=== PATIENT | male | born 1955 | race Caucasian/White ===

== ENCOUNTER 2016-09-20 21:12 | Inpatient (IN) | payer SELFPAY ==
--- NOTE | 2016-09-20 22:09 | ED Physician Chart ---
Chief Complaint/HPI - Patient Information Date Seen:: 09/20/16 Time Seen:: 21:30 Chief Complaint:: CHEST PAIN History of Present Illness:: THIS IS A 61 YO MALE DIABETIC, HYPERTENSIVE, ELEVATED CHOLESTROL WITH NAUSEA AND VOMITING SINCE 1000 HRS TODAY. HE STATES THAT HE FELT BETTER AFTER GETTING UP SOME OF THE EGGS AND SAUSAGE THAT HE ATE IN THE MORNING. HE DENIES A PREVIOUS HEART ATTACK AND DENIES TAKING ANY MEDS FOR HIS HEART. THE PATIENT DENIES ANY HISTORY OF GI PROBLEMS. HE DENIES HAVING ANY HEART OR CHEST PAIN OR SOB. HE DENIES A RECENT FEVER OF COUGH. Allergies:: Allergies Allergy/AdvReac Type Severity Reaction Status Date / Time No Known Allergies Allergy Verified 09/20/16 21:43 Vitals:: Vital Signs - 8 hr 09/20/16 21:25 Temp 97.9 F HR 99 RR 18 BP 230/114 O2 Sat % 95 Historian:: Patient Review:: Nurse's Note Reviewed Review of Systems - Review of Systems General/Constitutional: No fever, No chills, No weight loss, No weakness, No diaphoresis, No edema, No loss of appetite Skin: No skin lesions, No rash, No bruising Head: No headache, No light-headedness Eyes: No loss of vision, No pain, No diplopia ENT: No earache, No nasal drainage, No sore throat, No tinnitus Neck: No neck pain, No swelling, No thyromegaly, No stiffness, No mass noted Cardio Vascular: Chest pain, No palpitations, No PND, No orthopnea, No edema Pulmonary: No SOB, No cough, No sputum, No wheezing GI: Nausea, Vomiting, No diarrhea, No pain, No melena, No hematochezia, No constipation, No hematemesis G/U: No dysuria, No frequency, No hematuria Musculoskeletal: No bone or joint pain, No back pain, No muscle pain Endocrine: No polyuria, No polydipsia Psychiatric: No prior psych history, No depression, No anxiety, No suicidal ideation Hematopoietic: No bruising, No lymphadenopathy Allergic/Immuno: No urticaria, No angioedema Neurological: No syncope, No focal symptoms, No weakness, No paresthesia, No headache, No seizure, No dizziness, No confusion, No vertigo Past Medical History - Past Medical History Obtainable: Yes Past Medical History: HTN, DM, Dyslipidemia Family History: None Social History: Non Smoker, No Alcohol, No Drug Use, , Employed Surgical History: None Psychiatricy History: None Medication: Reviewed Family Medical History - Family Member Mother History Unknown: Yes Physical Exam - Physical Examination General/Constitutional: Awake, Well-developed, well-nourished, Alert, No distress, GCS 15, Non-toxic appearing, Ambulatory Other Gen/Cons comments:: OBESE Head: Atraumatic Eyes: Lids, conjuctiva normal, PERRL, EOMI Skin: Nl inspection, No rash, No skin lesions, No ecchymosis, Well hydrated, No lymphadenopathy ENMT: External ears, nose nl, Nasal exam nl, Lips, teeth, gums nl Neck: Nontender, Full ROM w/o pain, No JVD, No nuchal rigidity, No bruit, No mass, No stridor Respiratory: Nl effort/Exclusion, Clear to Auscultation, No Wheeze/Rhonchi/Rales Cardio Vascular: RRR, No murmur, gallop, rubs, NL S1 S2 GI: No tenderness/rebounding/guarding, No organomegaly, No hernia, Normal BS's, Nondistended, No mass/bruits, No McBurney tenderness : No CVA tenderness Extremities: No tenderness or effusion, Full ROM, normal strength in all extremities, No edema, Normal digits & nails Neuro/Psych: Alert/oriented, DTR's symmetric, Normal sensory exam, Normal motor strength, Judgement/insight normal, Mood normal, Normal gait, No focal deficits Misc: normal gait, Normal back, No paraspinal tenderness Labs/Radiology/EKG Results - Lab Results Results: Abnormal Lab Results 09/20/16 09/20/16 09/20/16 22:16 22:16 22:16 WBC 9.9 RBC 5.13 Hgb 16.2 Hct 47.6 MCV 92.7 MCH 31.6 H MCHC Differential 34.1 RDW 13.2 Plt Count 150 MPV 8.3 Band Neutrophils % 3 Neutrophils (Manual) 86 H Lymphocytes 7 L Monocytes 3 Eosinophils 1 Platelet Estimate ADEQUATE PT 11.2 INR 1.08 PTT (Actin FS) 26.7 Sodium Potassium Chloride Carbon Dioxide Anion Gap BUN Creatinine Est GFR ( Amer) Est GFR (Non-Af Amer) BUN/Creatinine Ratio Glucose Calcium Total Bilirubin AST ALT Alkaline Phosphatase Troponin I Total Protein Albumin Globulin Albumin/Globulin Ratio Triglycerides 81 Cholesterol 167 LDL Cholesterol Direct 95 HDL Cholesterol 53 TSH 09/20/16 09/20/16 09/20/16 22:16 22:16 22:16 WBC RBC Hgb Hct MCV MCH MCHC Differential RDW Plt Count MPV Band Neutrophils % Neutrophils (Manual) Lymphocytes Monocytes Eosinophils Platelet Estimate PT INR PTT (Actin FS) Sodium 131 L Potassium 4.6 Chloride 100 Carbon Dioxide 21.5 Anion Gap 14.1 BUN 14 Creatinine 1.0 Est GFR ( Amer) > 60.0 Est GFR (Non-Af Amer) > 60.0 BUN/Creatinine Ratio 14.0 Glucose 270 H Calcium 9.5 Total Bilirubin 0.9 AST 27 ALT 27 Alkaline Phosphatase 122 H Troponin I < 0.01 L Total Protein 8.1 Albumin 3.9 L Globulin 4.2 Albumin/Globulin Ratio 0.9 L Triglycerides Cholesterol LDL Cholesterol Direct HDL Cholesterol TSH 1.18 - Radiology Results Results: CT SCAN OF THE ABDOMEN = DISTENDED GALLBLADDER CHEST X-RAY = NAD - EKG Interpretations EKG Time:: 22:08 Rate & Rhythm: 94, SINUS [place]: LEFT Intervals: NO ECTOPY Assessment - Assessment General Assessment: PROTRACTED VOMITING DISTENDED GALLBLADDER ED Septic Shock - . Is Septic Shock (SBP<90, OR Lactate>4 mmol\L) present?: No - <6hrs of presentation: Vital Signs: Vital Signs - 8 hr 09/20/16 21:25 Temp 97.9 F HR 99 RR 18 BP 230/114 O2 Sat % 95 Reassessment (Disposition) - Reassessment Reassessment Condition:: Improved - Diagnosis Diagnosis:: PROTRACTED VOMITING DISTENDED GALLBLADDER HYPERTENSION UNCONTROLLED. - Patient Disposition Discharge/Transfer:: Acute Care w/in this hosp Admitting Medical Physician:: Keith Negrete Condition at Disposition:: Improved ED Discharge Plan - Patient Disposition Admit/Discharge/Transfer: Acute Care w/in this hosp Condition at Disposition: Improved
[2016-09-20 22:23] LABS: HEMATOCRIT 47.6 % (39.0-49.0); HEMOGLOBIN 16.2 gm/dL (13.2-17.3); MEAN CELL VOLUME 92.7 fl (80-99); MEAN CORPUSCULAR HEMOGLOBIN 31.6 pg (26.0-30.0); MEAN CORPUSCULAR HGB CONC 34.1 pg (28.0-36.0); MEAN PLATELET VOLUME 8.3 fl; NEUTROPHILE ABSOLUTE 8.9 Th/cmm (1.8-8.0); PLATELET COUNT 150 Th/cmm (150-400); RED BLOOD COUNT 5.13 Mil/cmm (4.30-5.70); RED CELL DISTRIBUTION WIDTH 13.2 % (11.5-20.0); WHITE BLOOD COUNT 9.9 Th/cmm (4.8-10.8)
[2016-09-20 22:40] LABS: BAND NEUTROPHILE 3 % (0-10); CHOLESTEROL 167 mg/dL (<200); EOSINOPHIL 1 % (0-5); NEUTROPHILS 86 % (40-80); PLATELET ESTIMATE ADEQUATE (NORMAL); TOTAL CELLS COUNTED 100; TRIGLYCERIDES 81 mg/dL (<150)
[2016-09-20 22:42] LABS: ALB/GLOB RATIO 0.9 (1.0-1.8); ALKALINE PHOSPHATASE 122 U/L (34-104); ANION GAP 14.1 (7.0-16.0); BILIRUBIN,TOTAL 0.9 mg/dL (0.3-1.0); BUN - UREA NITROGEN 14 mg/dL (7-25); CALCIUM SERUM 9.5 mg/dL (8.6-10.3); CARBON DIOXIDE 21.5 mEq/L (21.0-31.0); CHLORIDE 100 mEq/L (98-107); GLUCOSE 270 mg/dL (70-105); POTASSIUM SERUM 4.6 mEq/L (3.5-5.1); SGOT 27 U/L (13-39); SGPT/ALT 27 U/L (7-52); SODIUM SERUM 131 mEq/L (136-145)
[2016-09-20 22:44] LABS: INR 1.08 (0.5-1.4); PROTHROMBIN TIME (TEST) 11.2 SECONDS (9.5-11.5)
[2016-09-20] MEDS ORDERED: cloNIDine 0.2 mg/24 hr Tdm TD ONE (23:16)
[2016-09-21] MEDS ORDERED: Sodium Chloride 0.45% 1,000 ML IV ONE (01:42)
[2016-09-21 03:04] LABS: URINE COLOR YELLOW
[2016-09-21 03:05] LABS: URINE BILIRUBIN NEGATIVE (NEGATIVE); URINE BLOOD TRACE (NEGATIVE); URINE GLUCOSE (UA) 500 mg/dL (NEGATIVE); URINE KETONE 40 mg/dL (NEGATIVE); URINE PH 5.5; URINE PROTEIN >300 mg/dL (NEGATIVE); URINE RBC 0-2 /hpf (0-5); URINE WBC 0-2 /hpf (0-5)
[2016-09-21] MEDS: Sodium Chloride 0.9% 1,000 ML IV SCH ×2 (03:05→17:10)
[2016-09-21 03:06] LABS: URINE BACTERIA OCCASIONAL /hpf (NONE SEEN); URINE EPITHELIAL CELLS OCCASIONAL /lpf (FEW)
[2016-09-21 03:45] VITALS: BP 173/88
[2016-09-21 06:08] LABS: HEMATOCRIT 46.5 % (39.0-49.0); HEMOGLOBIN 15.9 gm/dL (13.2-17.3); MEAN CELL VOLUME 92.1 fl (80-99); MEAN CORPUSCULAR HEMOGLOBIN 31.4 pg (26.0-30.0); MEAN CORPUSCULAR HGB CONC 34.1 pg (28.0-36.0); MEAN PLATELET VOLUME 8.9 fl; PLATELET COUNT 142 Th/cmm (150-400); RED BLOOD COUNT 5.05 Mil/cmm (4.30-5.70); RED CELL DISTRIBUTION WIDTH 13.2 % (11.5-20.0)
[2016-09-21 06:15] LABS: WHITE BLOOD COUNT 13.5 Th/cmm (4.8-10.8)
[2016-09-21 06:27] LABS: ALKALINE PHOSPHATASE 113 U/L (34-104); ANION GAP 13.3 (7.0-16.0); BILIRUBIN,TOTAL 0.6 mg/dL (0.3-1.0); BUN - UREA NITROGEN 15 mg/dL (7-25); CALCIUM SERUM 9.2 mg/dL (8.6-10.3); CARBON DIOXIDE 20.9 mEq/L (21.0-31.0); CHLORIDE 99 mEq/L (98-107); GLUCOSE 261 mg/dL (70-105); POTASSIUM SERUM 4.2 mEq/L (3.5-5.1); SGOT 24 U/L (13-39); SGPT/ALT 24 U/L (7-52); SODIUM SERUM 129 mEq/L (136-145)
[2016-09-21 06:58] LABS: EOSINOPHIL 2 % (0-5); NEUTROPHILS 89 % (40-80); PLATELET ESTIMATE ADEQUATE (NORMAL); PLATELET MORPHOLOGY NORMAL (NORMAL); TOTAL CELLS COUNTED 100
[2016-09-21] MEDS ORDERED: VTE Chemical Prophylaxis Screen/Admission MC PRN (09:13)
--- NOTE | 2016-09-21 09:20 | Diagnostic Imaging Report ---
CT scan abdomen and pelvis without intravenous contrast HISTORY: Pain Total DLP equals 787 CTDI equals 15.5 Axial sections were obtained from the xiphoid process down to the pubic symphysis. Exam of the liver demonstrates a bulbous contour of the left lobe. No focal lesions. The spleen appears normal. The pancreas appears somewhat atrophic. Serpiginous densities seen in the splenic hilar region that may be associated with varices. There is a markedly distended gallbladder. No definite calculi. If indicated, sonography would provide additional assessment. No focal renal lesions. No hydronephrosis. The exam of the pelvis demonstrates preservation of normal fat planes. No abnormal soft tissue masses or abnormal fluid collections. Severe diffuse degenerative changes seen throughout the spine. Atherosclerotic calcification noted throughout the abdominal aorta and superficial femoral artery regions. IMPRESSION: 1. No definite acute abnormalities 2. Bulbous contour involving the left lobe of the liver 3. Serpiginous densities in the splenic hilar region. Varices cannot be definitely excluded. 4. Atrophic pancreas 5. Severe diffuse degenerative changes throughout the spine 6. Atherosclerotic vascular changes 7. Distended gallbladder. If indicated, sonography would provide additional assessment.
--- NOTE | 2016-09-21 09:28 | Diagnostic Imaging Report ---
Portable chest x-ray HISTORY: Pain Exam is suboptimal with underpenetration associated with patient size. The heart is enlarged. No definite focal pulmonary processes. Degenerative changes seen to the spine. IMPRESSION: 1. Suboptimal exam associated with under penetration related to patient size. 2. Cardiomegaly 3. No obvious focal pulmonary processes
[2016-09-21] MEDS: Levofloxacin 500mg/100mL 500 MG/100 ML BAG IV SCH (10:10)
[2016-09-21] MEDS ORDERED: APAP/Codeine 300 mg/30 mg Tab PO PRN (11:38)
--- NOTE | 2016-09-21 11:52 | History and Physical ---
History of Present Illness - HPI Chief Complaint: Chest pain HPI: patient refer that he started with nausea and vomit, later started with chest pain and came to ER for Eval. During ER eval Abdominal CT was done and distended gallblader was found. Today WBC is high. Vital Signs: Last Vital Signs Temp 99.3 F 09/21/16 08:27 Pulse 101 09/21/16 08:27 Resp 20 09/21/16 08:27 BP 150/79 09/21/16 08:27 Pulse Ox 96 09/21/16 08:27 Past Medical History Cardiovascular: Report: HTN Pulmonary: Report: No Pertinent Hx HAT CONDITIONER: Report: No Pertinent Hx GI: Report: Other (Nausea, vomit and abdominal pain) Psych: Report: No Pertinent Hx Musculoskeletal: Report: No Pertinent Hx Rheumatologic: Report: No pertinent Hx Infectious Disease: Report: No Pertinent Hx Renal/: Report: No Pertinent Hx Endocrine: Report: Diabetes Dermatology: Report: No Pertinent Hx - Past Surgical History Past Surgical History: No pertinent Hx Family Medical History - Family Member Mother History Unknown: Yes Social History Smoke: No Alcohol: None Drugs: None Lives: Alone Domestic Violence: Negative Health Maintenance Health Maintenance: Cholesterol - Medications Home Medications: Home Medication Medication Instructions Recorded Type Gabapentin 100 mg PO HS 09/20/16 History Glipizide [Glipizide ER] 10 mg PO BID 09/20/16 History Lisinopril 20 mg PO DAILY 09/20/16 History Metformin HCl [Metformin HCl] 1,000 mg PO BID 09/20/16 History Simvastatin [Zocor] 40 mg PO QPM 09/20/16 History - Allergies Allergies/Adverse Reactions: Allergies Allergy/AdvReac Type Severity Reaction Status Date / Time No Known Allergies Allergy Verified 09/20/16 21:43 Review of Systems - Review of Systems Constitutional: Report: Weakness Eyes: Report: Other (WNL) Respiratory: Report: Cough Cardiovascular: Report: Chest Pain Gastrointestinal: Report: Nausea, Vomiting Genitourinary: Report: Other (no dysuria) Musculoskeletal: Report: Other (No pain) Skin: Report: Other (Warm and dry) Neurological: Report: Other (ambulatory) Physical Exam - Physical Exam HEENT: Report: Ears Nose Throat Within Normal Limits Neck: Report: WNL Cardiovascular Systems: Report: Regular, Rate and Rhythm Respiratory: Report: Clear to Auscultation of lung clark Abdomen: Report: Tender to palpation Back: Report: Inspection of back is within normal limits. Extremities: Report: Non-tender to palpation. Skin: Report: Color of skin is within normal limits Neuro/Psych: Report: CN II-XII intact, No motor deficit - Lab Results All Lab Results last 24 hours: Laboratory Last Values WBC 13.5 Th/cmm (4.8-10.8) H D 09/21/16 05:52 RBC 5.05 Mil/cmm (4.30-5.70) 09/21/16 05:52 Hgb 15.9 gm/dL (13.2-17.3) 09/21/16 05:52 Hct 46.5 % (39.0-49.0) 09/21/16 05:52 MCV 92.1 fl (80-99) 09/21/16 05:52 MCH 31.4 pg (26.0-30.0) H 09/21/16 05:52 MCHC Differential 34.1 pg (28.0-36.0) 09/21/16 05:52 RDW 13.2 % (11.5-20.0) 09/21/16 05:52 Plt Count 142 Th/cmm (150-400) L 09/21/16 05:52 MPV 8.9 fl 09/21/16 05:52 Band Neutrophils % 3 % (0-10) 09/20/16 22:16 Neutrophils (Manual) 89 % (40-80) H 09/21/16 05:52 Lymphocytes 3 % (20-50) L 09/21/16 05:52 Monocytes 6 % (2-10) 09/21/16 05:52 Eosinophils 2 % (0-5) 09/21/16 05:52 Platelet Estimate ADEQUATE (NORMAL) 09/21/16 05:52 Platelet Morphology NORMAL (NORMAL) 09/21/16 05:52 RBC Morph Micro Appear NORMAL (NORMAL) 09/21/16 05:52 PT 11.2 SECONDS (9.5-11.5) 09/20/16 22:16 INR 1.08 (0.5-1.4) 09/20/16 22:16 PTT (Actin FS) 26.7 SECONDS (26.0-38.0) 09/20/16 22:16 Sodium 129 mEq/L (136-145) L 09/21/16 05:52 Potassium 4.2 mEq/L (3.5-5.1) 09/21/16 05:52 Chloride 99 mEq/L (98-107) 09/21/16 05:52 Carbon Dioxide 20.9 mEq/L (21.0-31.0) L 09/21/16 05:52 Anion Gap 13.3 (7.0-16.0) 09/21/16 05:52 BUN 15 mg/dL (7-25) 09/21/16 05:52 Creatinine 1.0 mg/dL (0.7-1.3) 09/21/16 05:52 Est GFR ( Amer) > 60.0 ml/min (>90) 09/21/16 05:52 Est GFR (Non-Af Amer) > 60.0 ml/min 09/21/16 05:52 BUN/Creatinine Ratio 15.0 09/21/16 05:52 Glucose 261 mg/dL (70-105) H 09/21/16 05:52 Hemoglobin A1c % 7.9 % (4.0-6.0) H 09/20/16 22:16 Calcium 9.2 mg/dL (8.6-10.3) 09/21/16 05:52 Total Bilirubin 0.6 mg/dL (0.3-1.0) 09/21/16 05:52 AST 24 U/L (13-39) 09/21/16 05:52 ALT 24 U/L (7-52) 09/21/16 05:52 Alkaline Phosphatase 113 U/L (34-104) H 09/21/16 05:52 Troponin I < 0.01 ng/mL (0.01-0.05) L 09/21/16 01:57 Total Protein 7.6 gm/dL (6.0-8.3) 09/21/16 05:52 Albumin 3.7 gm/dL (4.2-5.5) L 09/21/16 05:52 Globulin 3.9 gm/dL 09/21/16 05:52 Albumin/Globulin Ratio 1.0 (1.0-1.8) 09/21/16 05:52 Triglycerides 81 mg/dL (<150) 09/20/16 22:16 Cholesterol 167 mg/dL (<200) 09/20/16 22:16 LDL Cholesterol Direct 95 mg/dL (75-193) 09/20/16 22:16 HDL Cholesterol 53 mg/dL (23-92) 09/20/16 22:16 TSH 1.18 uIU/ml (0.34-5.60) 09/20/16 22:16 Urine Source CLEAN C 09/21/16 02:50 Urine Color YELLOW 09/21/16 02:50 Urine Clarity CLEAR (CLEAR) 09/21/16 02:50 Urine pH 5.5 09/21/16 02:50 Ur Specific [place] 1.025 (1.005-1.030) 09/21/16 02:50 Urine Protein >300 mg/dL (NEGATIVE) H 09/21/16 02:50 Urine Glucose (UA) 500 mg/dL (NEGATIVE) H 09/21/16 02:50 Urine Ketones 40 mg/dL (NEGATIVE) H 09/21/16 02:50 Urine Blood TRACE (NEGATIVE) 09/21/16 02:50 Urine Nitrate NEGATIVE (NEGATIVE) 09/21/16 02:50 Urine Bilirubin NEGATIVE (NEGATIVE) 09/21/16 02:50 Urine Urobilinogen 1.0 E.U./dL (0.2 - 1.0) 09/21/16 02:50 Ur Leukocyte Esterase NEGATIVE (NEGATIVE) 09/21/16 02:50 Urine RBC 0-2 /hpf (0-5) H 09/21/16 02:50 Urine WBC 0-2 /hpf (0-5) 09/21/16 02:50 Ur Epithelial Cells OCCASIONAL /lpf (FEW) 09/21/16 02:50 Urine Bacteria OCCASIONAL /hpf (NONE SEEN) 09/21/16 02:50 Laboratory Results - last 24 hr 09/21/16 09/21/16 09/21/16 01:57 02:50 05:52 WBC 13.5 H D RBC 5.05 Hgb 15.9 Hct 46.5 MCV 92.1 MCH 31.4 H MCHC Differential 34.1 RDW 13.2 Plt Count 142 L MPV 8.9 Neutrophils (Manual) 89 H Lymphocytes 3 L Monocytes 6 Eosinophils 2 Platelet Estimate ADEQUATE Platelet Morphology NORMAL RBC Morph Micro Appear NORMAL Sodium Potassium Chloride Carbon Dioxide Anion Gap BUN Creatinine Est GFR ( Amer) Est GFR (Non-Af Amer) BUN/Creatinine Ratio Glucose Calcium Total Bilirubin AST ALT Alkaline Phosphatase Troponin I < 0.01 L Total Protein Albumin Globulin Albumin/Globulin Ratio Urine Source CLEAN C Urine Color YELLOW Urine Clarity CLEAR Urine pH 5.5 Ur Specific [place] 1.025 Urine Protein >300 H Urine Glucose (UA) 500 H Urine Ketones 40 H Urine Blood TRACE Urine Nitrate NEGATIVE Urine Bilirubin NEGATIVE Urine Urobilinogen 1.0 Ur Leukocyte Esterase NEGATIVE Urine RBC 0-2 H Urine WBC 0-2 Ur Epithelial Cells OCCASIONAL Urine Bacteria OCCASIONAL 09/21/16 05:52 WBC RBC Hgb Hct MCV MCH MCHC Differential RDW Plt Count MPV Neutrophils (Manual) Lymphocytes Monocytes Eosinophils Platelet Estimate Platelet Morphology RBC Morph Micro Appear Sodium 129 L Potassium 4.2 Chloride 99 Carbon Dioxide 20.9 L Anion Gap 13.3 BUN 15 Creatinine 1.0 Est GFR ( Amer) > 60.0 Est GFR (Non-Af Amer) > 60.0 BUN/Creatinine Ratio 15.0 Glucose 261 H Calcium 9.2 Total Bilirubin 0.6 AST 24 ALT 24 Alkaline Phosphatase 113 H Troponin I Total Protein 7.6 Albumin 3.7 L Globulin 3.9 Albumin/Globulin Ratio 1.0 Urine Source Urine Color Urine Clarity Urine pH Ur Specific [place] Urine Protein Urine Glucose (UA) Urine Ketones Urine Blood Urine Nitrate Urine Bilirubin Urine Urobilinogen Ur Leukocyte Esterase Urine RBC Urine WBC Ur Epithelial Cells Urine Bacteria - Assessment Assessment: Patient is awake, calm in no acute distress. At this moment he denied abdominal pain or nausea. - Plan Plan: Patient already seen by GI. AB are prescribed. Will continue to monitor
[2016-09-21] MEDS: metroNIDAZOLE 500mg/NS 100mL 500 MG/100 ML BAG IV SCH ×3 (12:35→20:24)
[2016-09-22] MEDS: metroNIDAZOLE 500mg/NS 100mL 500 MG/100 ML BAG IV SCH ×3 (04:31→22:09)
[2016-09-22] MEDS: Sodium Chloride 0.9% 1,000 ML IV SCH ×2 (04:36→16:03)
[2016-09-22 06:28] LABS: % BASOPHILS 0.3 % (0.0-2.0); % EOSINOPHILS 1.6 % (0.0-5.0); % LYMPHOCYTES 22.1 % (20.0-50.0); % MONOCYTES 8.9 % (2.0-10.0); % NEUTROPHILS 67.1 % (40.0-80.0); HEMATOCRIT 43.5 % (39.0-49.0); HEMOGLOBIN 14.7 gm/dL (13.2-17.3); MEAN CELL VOLUME 94.2 fl (80-99); MEAN CORPUSCULAR HEMOGLOBIN 31.9 pg (26.0-30.0); MEAN CORPUSCULAR HGB CONC 33.9 pg (28.0-36.0); MEAN PLATELET VOLUME 8.5 fl; NEUTROPHILE ABSOLUTE 5.5 Th/cmm (1.8-8.0); PLATELET COUNT 135 Th/cmm (150-400); RED BLOOD COUNT 4.62 Mil/cmm (4.30-5.70); RED CELL DISTRIBUTION WIDTH 13.6 % (11.5-20.0)
[2016-09-22 06:29] LABS: INR 1.09 (0.5-1.4); PROTHROMBIN TIME (TEST) 11.4 SECONDS (9.5-11.5)
[2016-09-22 06:31] LABS: WHITE BLOOD COUNT 8.1 Th/cmm (4.8-10.8)
[2016-09-22 06:36] LABS: ALB/GLOB RATIO 0.9 (1.0-1.8); ALKALINE PHOSPHATASE 94 U/L (34-104); AMYLASE SERUM 19 U/L (29-103); BILIRUBIN,TOTAL 0.7 mg/dL (0.3-1.0); BUN - UREA NITROGEN 14 mg/dL (7-25); CALCIUM SERUM 8.7 mg/dL (8.6-10.3); GLUCOSE 120 mg/dL (70-105); LIPASE 9 U/L (11-82); SGOT 25 U/L (13-39); SGPT/ALT 21 U/L (7-52)
[2016-09-22 07:29] LABS: ANION GAP 11.5 (7.0-16.0); CARBON DIOXIDE 22.4 mEq/L (21.0-31.0); CHLORIDE 106 mEq/L (98-107); POTASSIUM SERUM 3.9 mEq/L (3.5-5.1); SODIUM SERUM 136 mEq/L (136-145)
--- NOTE | 2016-09-22 09:02 | General Progress Note ---
Subjective - Review of Systems Service Date: 09/22/16 Subjective: I am fine Objective - Results Result Diagrams: 09/22/16 06:06 09/22/16 06:06 Recent Labs: Laboratory Last Values WBC 8.1 Th/cmm (4.8-10.8) D 09/22/16 06:06 RBC 4.62 Mil/cmm (4.30-5.70) 09/22/16 06:06 Hgb 14.7 gm/dL (13.2-17.3) 09/22/16 06:06 Hct 43.5 % (39.0-49.0) 09/22/16 06:06 MCV 94.2 fl (80-99) 09/22/16 06:06 MCH 31.9 pg (26.0-30.0) H 09/22/16 06:06 MCHC Differential 33.9 pg (28.0-36.0) 09/22/16 06:06 RDW 13.6 % (11.5-20.0) 09/22/16 06:06 Plt Count 135 Th/cmm (150-400) L 09/22/16 06:06 MPV 8.5 fl 09/22/16 06:06 Neutrophils % 67.1 % (40.0-80.0) 09/22/16 06:06 Band Neutrophils % 3 % (0-10) 09/20/16 22:16 Lymphocytes % 22.1 % (20.0-50.0) 09/22/16 06:06 Monocytes % 8.9 % (2.0-10.0) 09/22/16 06:06 Eosinophils % 1.6 % (0.0-5.0) 09/22/16 06:06 Basophils % 0.3 % (0.0-2.0) 09/22/16 06:06 Neutrophils (Manual) 89 % (40-80) H 09/21/16 05:52 Lymphocytes 3 % (20-50) L 09/21/16 05:52 Monocytes 6 % (2-10) 09/21/16 05:52 Eosinophils 2 % (0-5) 09/21/16 05:52 Platelet Estimate ADEQUATE (NORMAL) 09/21/16 05:52 Platelet Morphology NORMAL (NORMAL) 09/21/16 05:52 RBC Morph Micro Appear NORMAL (NORMAL) 09/21/16 05:52 PT 11.4 SECONDS (9.5-11.5) 09/22/16 06:06 INR 1.09 (0.5-1.4) 09/22/16 06:06 PTT (Actin FS) 27.1 SECONDS (26.0-38.0) 09/22/16 06:06 Sodium 136 mEq/L (136-145) 09/22/16 06:06 Potassium 3.9 mEq/L (3.5-5.1) 09/22/16 06:06 Chloride 106 mEq/L (98-107) 09/22/16 06:06 Carbon Dioxide 22.4 mEq/L (21.0-31.0) 09/22/16 06:06 Anion Gap 11.5 (7.0-16.0) 09/22/16 06:06 BUN 14 mg/dL (7-25) 09/22/16 06:06 Creatinine 1.0 mg/dL (0.7-1.3) 09/22/16 06:06 Est GFR ( Amer) > 60.0 ml/min (>90) 09/22/16 06:06 Est GFR (Non-Af Amer) > 60.0 ml/min 09/22/16 06:06 BUN/Creatinine Ratio 14.0 09/22/16 06:06 Glucose 120 mg/dL (70-105) H 09/22/16 06:06 Hemoglobin A1c % 7.9 % (4.0-6.0) H 09/20/16 22:16 Calcium 8.7 mg/dL (8.6-10.3) 09/22/16 06:06 Total Bilirubin 0.7 mg/dL (0.3-1.0) 09/22/16 06:06 AST 25 U/L (13-39) 09/22/16 06:06 ALT 21 U/L (7-52) 09/22/16 06:06 Alkaline Phosphatase 94 U/L (34-104) 09/22/16 06:06 Troponin I < 0.01 ng/mL (0.01-0.05) L 09/21/16 01:57 Total Protein 6.7 gm/dL (6.0-8.3) 09/22/16 06:06 Albumin 3.2 gm/dL (4.2-5.5) L 09/22/16 06:06 Globulin 3.5 gm/dL 09/22/16 06:06 Albumin/Globulin Ratio 0.9 (1.0-1.8) L 09/22/16 06:06 Triglycerides 81 mg/dL (<150) 09/20/16 22:16 Cholesterol 167 mg/dL (<200) 09/20/16 22:16 LDL Cholesterol Direct 95 mg/dL (75-193) 09/20/16 22:16 HDL Cholesterol 53 mg/dL (23-92) 09/20/16 22:16 Amylase 19 U/L (29-103) L 09/22/16 06:06 Lipase 9 U/L (11-82) L 09/22/16 06:06 TSH 1.18 uIU/ml (0.34-5.60) 09/20/16 22:16 Urine Source CLEAN C 09/21/16 02:50 Urine Color YELLOW 09/21/16 02:50 Urine Clarity CLEAR (CLEAR) 09/21/16 02:50 Urine pH 5.5 09/21/16 02:50 Ur Specific [place] 1.025 (1.005-1.030) 09/21/16 02:50 Urine Protein >300 mg/dL (NEGATIVE) H 09/21/16 02:50 Urine Glucose (UA) 500 mg/dL (NEGATIVE) H 09/21/16 02:50 Urine Ketones 40 mg/dL (NEGATIVE) H 09/21/16 02:50 Urine Blood TRACE (NEGATIVE) 09/21/16 02:50 Urine Nitrate NEGATIVE (NEGATIVE) 09/21/16 02:50 Urine Bilirubin NEGATIVE (NEGATIVE) 09/21/16 02:50 Urine Urobilinogen 1.0 E.U./dL (0.2 - 1.0) 09/21/16 02:50 Ur Leukocyte Esterase NEGATIVE (NEGATIVE) 09/21/16 02:50 Urine RBC 0-2 /hpf (0-5) H 09/21/16 02:50 Urine WBC 0-2 /hpf (0-5) 09/21/16 02:50 Ur Epithelial Cells OCCASIONAL /lpf (FEW) 09/21/16 02:50 Urine Bacteria OCCASIONAL /hpf (NONE SEEN) 09/21/16 02:50 - Physical Exam Vitals and I&O: Vital Signs Temp 98.7 F 09/22/16 04:00 Pulse 87 09/22/16 04:00 Resp 20 09/22/16 04:00 BP 137/77 09/22/16 04:00 Pulse Ox 98 09/22/16 04:00 Intake & Output 09/21/16 09/22/16 09/22/16 18:59 06:59 18:59 Intake Total 2049 1200 Balance 2049 1200 Weight (lbs) 123.916 kg 126.416 kg Intake: Intake, IV Amount 1200 1200 Levofloxacin 500mg/100mL 100 500 mg In 100 ml @ 100 mls/hr IV Q24HR [facility] Rx#: [id number] Sodium Chloride 0.9% 1, 1000 1000 000 ml @ 90 mls/hr IV . Q11H7M [facility] Rx#:[id number] metroNIDAZOLE 500mg/NS 100 200 100mL 500 mg In 100 ml @ 100 mls/hr IV Q8HR [facility] Rx #:[id number] Oral 850 Other: # Voids 4 2 # Bowel Movements 0 0 Active Medications: Current Medications Acetaminophen/Codeine Phosphate (Tylenol W/Codeine #3) 1 tab PO Q6H PRN PRN Reason: Pain (Moderate) Stop: 11/20/16 11:37 Sodium Chloride (Nacl 0.9%) 1,000 mls @ 90 mls/hr IV .Q11H7M [facility] Stop: 11/20/16 02:51 Last Admin: 09/22/16 04:36 Dose: 90 mls/hr Levofloxacin (Levaquin Pb) 500 mg in 100 mls @ 100 mls/hr IV Q24HR [facility] Stop: 11/20/16 08:59 Last Infusion: 09/21/16 11:10 Dose: Infused Metronidazole (Flagyl) 500 mg in 100 mls @ 100 mls/hr IV Q8HR [facility] Stop: 11/20/16 08:59 Last Infusion: 09/22/16 05:35 Dose: Infused Lisinopril (Zestril) 20 mg PO DAILY [facility] Stop: 11/20/16 11:44 Last Admin: 09/21/16 12:39 Dose: 20 mg Miscellaneous ([employer] Prophylaxis Screen/ Admission) 1 [facility] PRN PRN PRN Reason: PROTOCOL Stop: 11/20/16 09:12 Ondansetron HCl (Zofran) 4 mg IV Q6H PRN PRN Reason: Nausea / Vomiting Stop: 11/20/16 08:25 Simvastatin (Zocor) 40 mg PO QPM [facility] PRN Reason: Protocol Stop: 11/20/16 16:59 Last Admin: 09/21/16 17:09 Dose: 40 mg General: Alert, Oriented x3, Cooperative, No acute distress HEENT: Atraumatic, PERRLA Cardiovascular: Regular rate Lungs: Clear to auscultation Abdomen: Bowel sounds, Soft Extremities: Other (No edema) Neurological: Normal gait Skin: Other (Warm and dry) Psych/Mental Status: Mental status NL Assessment/Plan - Assessment Assessment: Patient is awake, calm in no acute distress. At this moment he denied abdominal pain or nausea. WBC normal - Plan Plan: Patient already seen by GI. AB are prescribed. awaiting HIDA scan result. Patient improving. Will continue to monitor
[2016-09-22] MEDS: Levofloxacin 500mg/100mL 500 MG/100 ML BAG IV SCH (09:04)
--- NOTE | 2016-09-22 11:04 | Diagnostic Imaging Report ---
Nuclear medicine HIDA scan HISTORY: Pain, assess for possible cholecystitis COMPARISON: CT abdomen and pelvis on 09/20/2016 Technique/procedure: 5.8 mCi of technetium labeled Choletec was administered intravenously and multiple scintigraphic images were obtained for up to 1 hour. FINDINGS: Prompt hepatic uptake is demonstrated. Gallbladder uptake is seen at 20 minutes. Small bowel uptake was seen at 30 minutes. IMPRESSION: No evidence of cholecystitis.
[2016-09-23] MEDS: Sodium Chloride 0.9% 1,000 ML IV SCH (05:08)
[2016-09-23] MEDS: metroNIDAZOLE 500mg/NS 100mL 500 MG/100 ML BAG IV SCH (05:56)
--- NOTE | 2016-09-23 08:37 | Discharge Summary ---
General Discharge Summary - Discharge Summary Date of Admission: 09/21/16 Admitting Diagnosis: Nausea and vomiting Discharge Date: 09/23/16 Discharge Diagnosis: Cholecystitis, Hypertension Laboratory Findings: Laboratory Tests 09/21/16 09/21/16 09/22/16 05:52 05:52 06:06 WBC 13.5 H D 8.1 D RBC 5.05 4.62 Hgb 15.9 14.7 Hct 46.5 43.5 MCV 92.1 94.2 MCH 31.4 H 31.9 H MCHC Differential 34.1 33.9 RDW 13.2 13.6 Plt Count 142 L 135 L MPV 8.9 8.5 Neutrophils % 67.1 Lymphocytes % 22.1 Monocytes % 8.9 Eosinophils % 1.6 Basophils % 0.3 Neutrophils (Manual) 89 H Lymphocytes 3 L Monocytes 6 Eosinophils 2 Platelet Estimate ADEQUATE Platelet Morphology NORMAL RBC Morph Micro Appear NORMAL PT INR PTT (Actin FS) Sodium 129 L Potassium 4.2 Chloride 99 Carbon Dioxide 20.9 L Anion Gap 13.3 BUN 15 Creatinine 1.0 Est GFR ( Amer) > 60.0 Est GFR (Non-Af Amer) > 60.0 BUN/Creatinine Ratio 15.0 Glucose 261 H Calcium 9.2 Total Bilirubin 0.6 AST 24 ALT 24 Alkaline Phosphatase 113 H Total Protein 7.6 Albumin 3.7 L Globulin 3.9 Albumin/Globulin Ratio 1.0 Amylase Lipase 09/22/16 09/22/16 06:06 06:06 WBC RBC Hgb Hct MCV MCH MCHC Differential RDW Plt Count MPV Neutrophils % Lymphocytes % Monocytes % Eosinophils % Basophils % Neutrophils (Manual) Lymphocytes Monocytes Eosinophils Platelet Estimate Platelet Morphology RBC Morph Micro Appear PT 11.4 INR 1.09 PTT (Actin FS) 27.1 Sodium 136 Potassium 3.9 Chloride 106 Carbon Dioxide 22.4 Anion Gap 11.5 BUN 14 Creatinine 1.0 Est GFR ( Amer) > 60.0 Est GFR (Non-Af Amer) > 60.0 BUN/Creatinine Ratio 14.0 Glucose 120 H Calcium 8.7 Total Bilirubin 0.7 AST 25 ALT 21 Alkaline Phosphatase 94 Total Protein 6.7 Albumin 3.2 L Globulin 3.5 Albumin/Globulin Ratio 0.9 L Amylase 19 L Lipase 9 L Hospital Course: Patient was started in IV NS, Levaquin and Metronidazole, Pain management, he was continue with home meds, and received low Na diet. Abdominal CT and HIDA scan were done. Patient improved WBC became normal. Condition at Discharge: Stable Disposition: PT DISCHARGED HOME Home Medications: Home Medication Medication Instructions Recorded Type Gabapentin 100 mg PO HS 09/20/16 History Glipizide [Glipizide ER] 10 mg PO BID 09/20/16 History Lisinopril 20 mg PO DAILY 09/20/16 History Metformin HCl [Metformin HCl] 1,000 mg PO BID 09/20/16 History Simvastatin [Zocor] 40 mg PO QPM 09/20/16 History Inpatient Medications: Current Medications Acetaminophen/Codeine Phosphate (Tylenol W/Codeine #3) 1 tab PO Q6H PRN PRN Reason: Pain (Moderate) Stop: 11/20/16 11:37 Sodium Chloride (Nacl 0.9%) 1,000 mls @ 90 mls/hr IV .[id number] [facility] Stop: 11/20/16 02:51 Last Admin: 09/23/16 05:08 Dose: 90 mls/hr Levofloxacin (Levaquin Pb) 500 mg in 100 mls @ 100 mls/hr IV Q24HR [facility] Stop: 11/20/16 08:59 Last Admin: 09/22/16 09:04 Dose: 100 mls/hr Metronidazole (Flagyl) 500 mg in 100 mls @ 100 mls/hr IV Q8HR [facility] Stop: 11/20/16 08:59 Last Admin: 09/23/16 05:56 Dose: 100 mls/hr Lisinopril (Zestril) 20 mg PO DAILY [facility] Stop: 11/20/16 11:44 Last Admin: 09/22/16 09:05 Dose: 20 mg Miscellaneous (Vte Chemical Prophylaxis Screen/ Admission) 1 ea [facility] PRN PRN PRN Reason: PROTOCOL Stop: 11/20/16 09:12 Ondansetron HCl (Zofran) 4 mg IV Q6H PRN PRN Reason: Nausea / Vomiting Stop: 11/20/16 08:25 Simvastatin (Zocor) 40 mg PO QPM ASAD PRN Reason: Protocol Stop: 11/20/16 16:59 Last Admin: 09/22/16 16:08 Dose: 40 mg Activity: As Tolerated Discharge Diet: Regular Consults and Follow-Up: CASTIANOS,JAN [Other] not on staff,PCP is [Primary Care Provider] - Consulting Speciality: GI
[2016-09-23] MEDS: Levofloxacin 500mg/100mL 500 MG/100 ML BAG IV SCH (09:27)
== END 2016-09-23 11:30 | disposition home or self-care (01) | DRG 305 ==
LOC: ER 21:12 → MSI 09-21 01:45 → OBSVTOIN 09-21 02:52
PROVIDERS: ADMIT General Practice; ATTEND General Practice
DX: I10 Essential (primary) hypertension (principal); Z68.41 Body mass index [BMI] 40.0-44.9, adult; R07.89 Other chest pain; E11.9 Type 2 diabetes mellitus without complications; E78.5 Hyperlipidemia, unspecified; E66.9 Obesity, unspecified; K81.9 Cholecystitis, unspecified
CPT/HCPCS: 36415-UA; 71010-TC; 78226-TC; 80053-TC; 80061-TC; 81001-TC; 82150-TC; 82948-90; 83036-90; 83690-TC; 84443-TC; 84484-TC; 85007-TC; 85025-TC; 85027-TC; 85610-TC; 85730-TC; 86592-TC; 90799; 93005; A9537; J0360; J0696; J1956; J2060; J2405; J7030; Q0162